=== PATIENT | male | born 1975 | race Caucasian/White ===

== ENCOUNTER → 2020-11-03 | Outpatient (REF) | payer OTHER | LOC: M SMT 17:11 | PROVIDERS: ATTEND Urology | DX: Z30.2 Encounter for sterilization (principal) ==

== ENCOUNTER → 2020-12-29 | Outpatient (REF) | payer OTHER ==
[2020-12-29 09:17] LABS: SEMEN APPEARANCE OPAQUE (OPAQUE); SEMEN VISCOSITY LIQUID (LIQUID); SEMEN VOLUME 1.2 ml (2.0-5.0); SEMEN pH 8.5 (7.0-8.0)
[2020-12-29 09:18] LABS: WBC CONCENTRATION >1 M/ml (<=1 M/ml)
== END ==
LOC: M SMT 09:13
PROVIDERS: ATTEND Urology
DX: Z30.8 Encounter for other contraceptive management (principal)

== ENCOUNTER → 2021-03-08 | Outpatient (REF) | payer OTHER ==
[2021-03-08 09:14] LABS: SEMEN APPEARANCE OPAQUE (OPAQUE); SEMEN VISCOSITY LIQUID (LIQUID); SEMEN VOLUME 1.4 ml (2.0-5.0); WBC CONCENTRATION <=1 M/ml (<=1 M/ml)
== END ==
LOC: M SMT 09:12
PROVIDERS: ATTEND Urology
DX: Z30.8 Encounter for other contraceptive management (principal)